=== PATIENT | male | born 1945 | race Caucasian/White ===

== ENCOUNTER → 2017-11-25 07:01 | Outpatient (CLI) | payer MEDICARE, OTHER, SELFPAY ==
--- NOTE | 2017-11-25 11:48 | STRESSREP ---
Stress Test Report Exercise myocardial perfusion stress test. 72-year-old man with a history of coronary artery disease. Medications aspirin Synthroid metoprolol rochelle cortez. Stress protocol: Resting EKG demonstrates normal sinus rhythm with rate of 74 bpm and occasional premature ventricular complex noted resting blood pressures 144/88 mmHg. The patient exercised according to regular Russ protocol for total duration of 6 minutes completing stage II of the Russ protocol. The maximum heart rate attained was 151 bpm which was 100% of maximum predicted heart rate the maximum workload was 7 metabolic equivalents. The patient maintained sinus rhythm throughout the recording. At rest there were no ST or T-wave changes noted suggest ischemia at peak exercise upsloping ST changes only were noted with no meet the criteria for ischemia. No clinical angina was noted. The resting blood pressure was 144/88 with a peak blood pressure 180/82 mmHg rate pressure product was 25,600. Myocardial perfusion protocol. 11.0 mCi of technetium 99m sestamibi was injected at rest. The patient then exercised according to regular Russ protocol for 6 minutes attaining 100% maximum predicted heart rate and a workload of 7 metabolic equivalents at peak exercise 32.8 mCi of technetium 99m sestamibi was injected stress images were obtained stress and rest images were reconstructed and compared in the short axis vertical long horizontal long axis. Gated images were also obtained pre- Perfusion SPECT analysis: Review of the stress images demonstrate normal uptake of tracer noted in all areas of the myocardium. The resting images similarly demonstrate normal uptake of tracer noted in all areas of the myocardium. No areas of reversibility are noted suggest ischemia and no previous infarct is noted. Gated SPECT analysis: The gated ejection fraction is 70%. Conclusion: Normal exercise myocardial perfusion stress test at a moderate workload. No clinical angina noted. Preserved ejection fraction.
== END ==
PROVIDERS: Family Provider Family Medicine; PCP Family Medicine; Visit Provider Internal Medicine Cardiovascular Disease
DX: Z95.1 Presence of aortocoronary bypass graft (principal)
CPT/HCPCS: 78452; 93017; A9500

== ENCOUNTER → 2019-07-30 10:47 | Outpatient (CLI) | payer MEDICARE, OTHER, SELFPAY ==
[2019-07-30 09:50] VITALS: BMI 29.0
--- NOTE | 2019-07-30 10:49 | RAD_ITS ---
STUDY: X-RAY CHEST REASON FOR EXAM: Male, 74 years old. Dyspnea exertion for several months. History of prior heart surgery. TECHNIQUE: PA and lateral views of the chest. COMPARISON: None. FINDINGS: The lungs are clear and expanded. There is no demonstrated pleural abnormality. Sternal cerclage wires and vascular clips are present from a prior sternotomy and coronary artery bypass graft procedure (CABG). The heart is normal in size. Normal mediastinum and ryland. Normal visualized pulmonary arteries. Normal visualized aortic arch and descending thoracic aorta. There are diffuse degenerative changes of the visualized thoracic spine. Normal visualized ribs, clavicles, and shoulders. There is no demonstrated abnormality of the visualized soft tissue structures of the upper abdomen. RAD/Chest PA and Lateral IMPRESSION: Evidence of prior CABG procedure. There is no acute pulmonary disease. Electronically Signed: George Granado DO at 19:33 EDT Tel [phone], Service support ,
[2019-07-30 11:49] LABS: Absolute Lymphocyte Count 1.98 X10^3/uL (0.83-4.51); Absolute Neutrophil Count 5.8 X10^3/uL (2.0-7.7); Eosinophil# 0.56 X10^3/uL; Eosinophils% 5.5 % (0-5); Hematocrit 45.7 % (40-54); Hemoglobin 14.1 g/dL (13.0-16.5); Lymphocyte # 1.98 X10^3/ul (4.0); Lymphocyte % 19.6 % (19-41); Mean Corp Hgb Conc 30.9 g/dL (32-36); Mean Corpuscular Hgb 26.4 pg (27.0-32.0); Mean Corpuscular Volume 85.6 fL (80-94); Mean Platelet Vol. 9.9 fl (6.2-12.0); Monocyte# 1.62 X10^3/uL; NRBC Flagged by Analyzer 0 % (0-5); Neutrophil # 5.82 X10^3/uL (2.7-7.7); Neutrophil % 57.6 % (47-70); POSITIVE DIFFERENTIAL YES; Platelet Count 402 K/mm3 (150-450); RBC Distribution Width CV 16.6 % (11.6-14.6); Red Blood Count 5.34 M/mm3 (4.6-6.2); White Blood Count 10.1 K/mm3 (4.4-11.0)
[2019-07-30 11:53] LABS: Differential Indicated SCAN CRITERIA MET
[2019-07-30 12:12] LABS: Anion Gap 4 (5-15); BUN 16 mg/dL (7-18); BUN/Creat Ratio 14.2 RATIO (10-20); Chloride 109 mmol/L (98-107); Creatinine, Serum 1.13 mg/dL (0.70-1.30); EST Glomerular Filtration Rate 68 mL/min (>60); Est Glom Filt Rate - Afr Amer 82 mL/min (>60); Glucose 94 mg/dL (74-106); Potassium 4.4 mmol/L (3.5-5.1); Sodium Level 139 mmol/L (136-145)
[2019-07-30 12:17] LABS: BNP,B-Type NATRIURETIC PEPTIDE 192.3 pg/mL (0-100)
== END ==
PROVIDERS: PCP Student in an Organized Health Care Education/Training Program; Referring Provider Nurse Practitioner Family; Visit Provider Nurse Practitioner Family
DX: R06.00 Dyspnea, unspecified (principal); I25.10 Atherosclerotic heart disease of native coronary artery without angina pectoris; Z95.1 Presence of aortocoronary bypass graft
CPT/HCPCS: 36415; 71046; 80048; 83880; 85025

== ENCOUNTER → 2019-08-12 06:52 | Outpatient (CLI) | payer MEDICARE, OTHER, SELFPAY ==
[2019-07-30 09:50] VITALS: BMI 29.0
--- NOTE | 2019-08-12 06:53 | ECHOD_ITS ---
Reason For Study: S/P CABG Procedure This was a 2D Doppler, Color Flow transthoracic echocardiogram. Exam performed in department. Left Ventricle Normal LV size. Moderate concentric left ventricular hypertrophy. Left ventricular systolic function is normal. The estimated ejection fraction is 60 %. Stage 1 diastolic dysfunction. No regional wall motion abnormalities noted. Atria Normal left atrium. Normal right atrium. Mitral Valve Mild focal mitral valve calcification, bileaflet. Tricuspid Valve Normal tricuspid valve. Mild tricuspid valve insufficiency. Aortic Valve Trisinus/trileaflet aortic valve. Mild focal aortic valve calcification. Pulmonic Valve Normal pulmonic valve. Great Vessels Normal aortic root. The pulmonary artery is normal size. Normal inferior vena cava. Pericardium/Pleural No pericardial effusion. MMode/2D Measurements & Calculations LVIDd: 3.6 cm IVSd: 1.2 cm Ao root diam: 4.2 cm LVIDs: 2.1 cm LVPWd: 1.2 cm RVDd: 3.8 cm FS: 42.1 % LVAd ap4: 29.1 cm2 SV(MOD-sp4): 45.9 ml SV(sp4-el): 47.7 ml EDV(MOD-sp4): 83.0 ml EDV(sp4-el): 85.6 ml LVAs ap4: 17.7 cm2 ESV(MOD-sp4): 37.0 ml ESV(sp4-el): 37.9 ml EF(MOD-sp4): 55.4 % EF(sp4-el): 55.7 % LA dimension(2D): 5.6 cm Time Measurements MV dec time: 0.34 sec Doppler Measurements & Calculations MV E max madan: 99.1 cm/sec Lat Peak E' Madan: 8.0 cm/sec Med Peak E' Madan: 5.0 cm/sec MV A max madan: 146.8 cm/sec E/E' lat: 12.4 E/E' med: 19.9 MV E/A: 0.67 MV V2 max: 135.0 cm/sec Ao V2 max: 141.2 cm/sec PA V2 max: 111.5 cm/sec MV max P.3 mmHg Ao max P.3 mmHg MV V2 mean: 81.3 cm/sec Ao V2 mean: 102.6 cm/sec MV mean P.9 mmHg Ao mean P.8 mmHg MV V2 VTI: 33.5 cm Ao V2 VTI: 33.6 cm TR max madan: 246.5 cm/sec MV P1/2t-pr_phl: 95.1 msec TR max P.4 mmHg Interpretation Summary Normal LV size. Moderate concentric left ventricular hypertrophy. Left ventricular systolic function is normal. The estimated ejection fraction is 60 %. Stage 1 diastolic dysfunction. Mild focal mitral valve calcification, bileaflet. Mild tricuspid valve insufficiency. Ordering Physician: Parviz Villalta Referring Physician: RIKKI RODRIGUEZ Performed By: Marti Randolph RDCS, RVT
--- NOTE | 2019-08-12 13:24 | STRESSREP ---
Stress Test Report Pharmacologic myocardial perfusion stress test. 74-year-old man with a history of chest pain. Stress protocol: Resting EKG demonstrates normal sinus rhythm with a rate of 80 bpm normal intervals are noted resting blood pressure is 128/80 mmHg. 0.4 mg of regadenoson was infused per usual protocol. Intravenous saline flush injection was also administered. The maximum heart rate attained was 88 bpm which was 59% of maximum predicted heart rate the maximum workload was 1 metabolic equivalent. At rest there were no ST or T wave changes noted to suggest abnormal flow reserve at peak infusion nonspecific ST-T wave changes were noted. The resting blood pressure was 128/80 with a final blood pressure 118/70 mmHg. Myocardial perfusion protocol. 15.0 mCi of technetium 99m sestamibi was injected at rest. 0.4 mg of regadenoson was infused per usual protocol. At peak infusion 44.6 mCi of technetium 99m sestamibi was injected stress images were obtained stress and rest images were reconstructed and compared in the short axis vertical long horizontal long axis. Gated images were also obtained per Perfusion SPECT analysis: Review of the stress images demonstrate normal uptake of tracer noted in all areas of myocardium the resting images similar demonstrate normal uptake of tracer noted in all areas of the myocardium. No areas of ischemia were noted. Gated SPECT analysis: The gated ejection fraction is 64%. Conclusion: Normal pharmacologic myocardial perfusion stress test. Preserved ejection fraction.
== END ==
PROVIDERS: PCP Student in an Organized Health Care Education/Training Program; Referring Provider Nurse Practitioner Family; Visit Provider Nurse Practitioner Family
DX: I25.10 Atherosclerotic heart disease of native coronary artery without angina pectoris (principal); R06.00 Dyspnea, unspecified; Z95.1 Presence of aortocoronary bypass graft
CPT/HCPCS: 78452; 93017; 93306; A9500; A4216; J2785

== ENCOUNTER → 2019-09-21 12:12 | Outpatient (CLI) | payer MEDICARE, OTHER, SELFPAY ==
[2019-08-21 05:57] VITALS: BMI 29.2
[2019-09-21 12:49] VITALS: PULSE 82; PULSE 84; PULSE 90; PULSE 91; PULSE 92; PULSE 93; O2SAT 93; O2SAT 94; O2SAT 95; O2SAT 96; O2SAT 97
--- NOTE | 2019-09-21 13:42 | PCM.PSN.6M ---
PSN 6 Minute Walk Test - 6 Minute Walk Test 6 Minute Walk Test: 6 Minute Walk Test PSN:6-Minute Walk Test Start: 09/21/19 12:49 Freq: Status: Active Protocol: [id number].[id number] Document 09/21/19 12:49 [facility] (Rec: 09/21/19 12:55 [facility] [id number]) 6 Minute Walk Test Date Performed 09/21/19 Time Performed 12:30 Height 5 ft 11 in Weight: 93.44 kg Weight in Pounds 206.[address]: Russ Neumann Assistive device used: None Pre-test Oxygen Delivery Method Room Air Pulse Ox (%) 96 Pulse Rate (60-100 beats/min) 82 Dyspnea Naty Scale (0-10) 2 1st minute Oxygen Delivery Method Room Air Pulse Ox (%) 95 Pulse Rate (60-100 beats/min) 90 Dyspnea Naty Scale (0-10) 2 Number of Rests Taken 0 2nd minute Pulse Ox (%) 94 Pulse Rate (60-100 beats/min) 91 Dyspnea Naty Scale (0-10) 2 Number of Rests Taken 0 3rd minute Oxygen Delivery Method Room Air Pulse Ox (%) 95 Pulse Rate (60-100 beats/min) 93 Dyspnea Naty Scale (0-10) 2 Number of Rests Taken 0 4th minute Oxygen Delivery Method Room Air Pulse Ox (%) 94 Pulse Rate (60-100 beats/min) 92 Dyspnea Naty Scale (0-10) 2 Number of Rests Taken 0 5th minute Oxygen Delivery Method Room Air Pulse Ox (%) 94 Pulse Rate (60-100 beats/min) 91 Dyspnea Naty Scale (0-10) 2 Number of Rests Taken 0 6th minute Oxygen Delivery Method Room Air Pulse Ox (%) 93 Pulse Rate (60-100 beats/min) 92 Dyspnea Naty Scale (0-10) 3 Number of Rests Taken 0 Reported Symptoms Increased Work of Breathing Post-test Oxygen Delivery Method Room Air Pulse Ox (%) 97 Pulse Rate (60-100 beats/min) 84 Dyspnea Naty Scale (0-10) 2 Full Laps Walked 21 Partial Lap, Number of Tiles Walked 37 Total Distance Walked (ft) 1276 - Interpretation Interpretation: The patient was able to ambulate 1276 feet over the course of 6 minutes on room air with no assistive devices or breaks. The patient experienced no significant desaturation or tachycardia during testing. These findings are consistent with a normal exercise oximetry. - Recommendations Recommendations: No supplemental oxygen is indicated at this time.
== END ==
PROVIDERS: PCP Student in an Organized Health Care Education/Training Program; Referring Provider Internal Medicine Critical Care Medicine; Visit Provider Internal Medicine Critical Care Medicine
DX: R06.02 Shortness of breath (principal)
CPT/HCPCS: 94618

== ENCOUNTER → 2019-10-09 06:59 | Outpatient (CLI) | payer MEDICARE, OTHER, SELFPAY ==
[2019-08-21 05:57] VITALS: BMI 29.2
--- NOTE | 2019-10-09 13:13 | PFTCOMP_ITS ---
COMPLETE PULMONARY FUNCTION TEST INTERPRETATION Brief HPI: Patient is a 74 year old male, currently under the care of myself, who presents to [facility] for complete pulmonary function tests secondary to diagnosis of dyspnea. Respiratory therapist reports good effort and reproducible results. Interpretation: Forced expiration spirometry shows a mild large airways obstructive ventilatory defect with an FEV1 of 76% predicted. There is no significant bronchodilator response by strict ATS criteria. Spirograms are of good quality and plateau slowly, indicating slowly emptying areas of the lungs. The respiratory flow volume loop shows decreased expiratory flow rates at all lung volumes consistent with airway obstruction. Lung volumes by body plethysmography show a slightly decreased total lung capacity at 5.48 L, 82% predicted. All other lung volumes are within normal limits. Diffusion capacity by carbon monoxide is normal at 96% predicted. The airway resistance is elevated. No previous pulmonary function tests were available for review. Impression: Irreversible mild mixed ventilatory defect with preserved diffusion capacity.
== END ==
PROVIDERS: PCP Student in an Organized Health Care Education/Training Program; Referring Provider Internal Medicine Critical Care Medicine; Visit Provider Internal Medicine Critical Care Medicine
DX: R06.02 Shortness of breath (principal)
CPT/HCPCS: 94060; 94726; 94729